=== PATIENT | female | born 1940 | race Asian ===

== ENCOUNTER 2021-05-30 19:10 | Emergency (ER) | payer OTHER ==
[~2021-05-30] VITALS: Ht 152.4 cm; Wt 43.1 kg
[2021-05-30 19:10] VITALS: BP 157/90
--- NOTE | 2021-05-30 19:13 | NUR ---
BIBA TAKEN TO BED #3
--- NOTE | 2021-05-30 19:15 | NUR ---
SEE COMPLETE ASSESSMENT. ALL SAFETY MEASURES IN PLACE. WILL CONTINUE TO MONITOR
[2021-05-30] MEDS ORDERED: LIDOCAINE MPF 1% 10 MG/ML VIAL INJ ONE (19:35)
--- NOTE | 2021-05-30 19:40 | NUR ---
PT AMBUALTED TO RESTROOM UNASSITED. STEADY GAIT OBSERVED.
--- NOTE | 2021-05-30 20:03 | NUR ---
ATTEMPTED TO GIVE TDAP VACCINATION, PT WOULD NOT ALLOW INJECTION. PT WITHDRAW SEVERAL TIMES. WILL HOLD OFF UNTIL PATIENT IS MORE CALM. DR. MAYS MADE AWARE
[2021-05-30 20:10] LABS: BASOPHILS % (AUTO) 0.4 % (0.0-2.0); EOSINOPHILS # (AUTO) 0.1 K/uL (0-0.4); EOSINOPHILS % (AUTO) 1.3 % (0.0-4.0); HEMATOCRIT 40.1 % (36-48); HEMOGLOBIN 13.2 g/dL (12.0-16.0); LYMPHOCYTES # (AUTO) 1.7 K/uL (2.5-16.5); LYMPHOCYTES % (AUTO) 29.2 % (20.5-51.1); MEAN CORPUSCULAR HEMOGLOBIN 31 pg (27-31); MEAN CORPUSCULAR HGB CONC 33 g/dL (33-37); MEAN CORPUSCULAR VOLUME 94.1 fL (80-94); MONOCYTES # (AUTO) 0.5 K/uL (0.8-1.0); MONOCYTES % (AUTO) 7.6 % (1.7-9.3); NEUTROPHILS # (AUTO) 3.7 K/uL (1.8-7.7); NEUTROPHILS % (AUTO) 61.5 % (42.2-75.2); PLATELET COUNT (AUTO) 191 K/uL (140-450); RED BLOOD CELL COUNT(AUTO) 4.27 MIL/uL (4.20-5.40); RED CELL DISTRIBUTION WIDTH 14.5 % (11.6-13.7)
--- NOTE | 2021-05-30 20:15 | NUR ---
LAC IRRIGATED. STERRI STRIPS APPLIED TO LT UPPER CHEEK 1CM LAC.
--- NOTE | 2021-05-30 20:30 | NUR ---
PER JESSIE, SON HE WOULD NOT BE ABLE TO PROVIDE TRANSPORTATION FOR PT TO RETURN TO HER FACILITY.
--- NOTE | 2021-05-30 20:30 | NUR ---
S/W JESSIE, PT SON TO PROVIDE UPDATE ON PATIENT CONDITION. CALL TRANSFERRED TO PT AT THIS TIME. CALL PROVIDED PT WITH COMFORT. PT SEATED IN BED AND CALM.
[2021-05-30 20:31] LABS: ALBUMIN 4.1 g/dL (3.4-5.0); ANION GAP 11.3 (8-16); ASPARTATE AMINOTRANSFERASE 13 U/L (15-37); CARBON DIOXIDE 29.7 mmol/L (21-32); CHLORIDE 108 mmol/L (98-107); CREATININE 0.8 mg/dL (0.6-1.3); GLUCOSE 129 mg/dL (74-106); SODIUM SERUM 145 mmol/L (136-145); TOTAL BILIRUBIN 0.2 mg/dL (0.0-1.0); UREA NITROGEN, BLOOD 19 mg/dL (7-18)
--- NOTE | 2021-05-30 21:20 | NUR ---
CALLED [facility]. PER [facility] THEY DO NOT HAVE A TRANSPORTATION SERVICE TO P/U PT AND TRANSPORTATION WOULD NEED TO BE ARRANGED BY OUR FACILITY.
--- NOTE | 2021-05-30 22:00 | NUR ---
PT NEEDS REORIENTATING FREQUENTLY AND REMINDER TO STAY IN HER ROOM. PT COOPERATIVE AT THIS TIME.
--- NOTE | 2021-05-30 23:15 | NUR ---
PT SEEN LAYING IN BED QUIETLY. VISIBLE CHEST RISE AND FALL NOTED. ALL NEEDS MET AT THIS TIME. WILL CONTINUE TO MONITOR.
--- NOTE | 2021-05-31 00:15 | NUR ---
PT SEEN WALKING THE HALLWAYS. ATTEMPTED TO REDIRECT PT TO ROOM. PT BEGAN YELLING AND SCREAMING, UNWILLING TO RETURN TO ROOM. PT AGAITATED AT THIS TIME. DR. MAJANO MADE AWARE. VERBAL ORDER FOR BENADRYL 50MG PO GIVEN.
[2021-05-31] MEDS ORDERED: diphenhydrAMINE 50 MG CAP PO ONE ×2 (00:20→00:21)
[2021-05-31] MEDS ORDERED: diphenhydrAMINE 50 MG/ML VIAL IM ONE (00:25)
[2021-05-31] MEDS ORDERED: LORazepam 2 MG/ML VIAL IM ONE (00:25)
--- NOTE | 2021-05-31 00:25 | NUR ---
PT DROPPED MEDICATION. NEW ORDERS RECEIVED FOR ATIVAN 1MG IM AND BENADRYL 50MG IM FROM DR. MAJANO, ORDER CARRIED OUT.
[2021-05-31] MEDS ORDERED: diphenhydrAMINE 50 MG/ML VIAL ONE (00:27)
[2021-05-31] MEDS ORDERED: LORazepam 2 MG/ML VIAL ONE (00:27)
--- NOTE | 2021-05-31 01:08 | NUR ---
attempted to gather vitals, pt uncooperative. will reattempt when pt is more calm.
--- NOTE | 2021-05-31 03:07 | NUR ---
PT SEEN LAYING IN BED QUIETLY. VISIBLE CHEST RISE AND FALL NOTED. ALL NEEDS MET AT THIS TIME. WILL CONTINUE TO MONITOR.
--- NOTE | 2021-05-31 04:30 | NUR ---
PT ASSISSTED TO AND FROM RESTROOM.
--- NOTE | 2021-05-31 04:45 | NUR ---
PT PLACED IN BED. PROVIDED WITH WARM BLANKET FOR COMFORT. WILL CONTINUE TO MONITOR.
--- NOTE | 2021-05-31 06:10 | NUR ---
PT SEEN TRYING TO LEAVE ROOM. PT ASSISTED BACK TO ROOM AT THIS TIME. ALL NEEDS MET WILL CONTINUE TO MONITOR.
--- NOTE | 2021-05-31 07:32 | NUR ---
pt sitting in wheelchair by nursing station, unable to reach facility to pick pt up, spoke to son regarding issue states he will attempt to call facility for possible transportation.
--- NOTE | 2021-05-31 08:00 | NUR ---
spoke to son states he will pick pt up in one hour. relief charge nurse made aware
--- NOTE | 2021-05-31 09:10 | NUR ---
spoke to son who states he will be here at 0930 charge poster made aware
[2021-05-31 09:53] VITALS: BP 112/70
--- NOTE | 2021-05-31 09:53 | NUR ---
son here for dc. pts son verbalizes dc instructions. no acute distress noted. stable on dc.
== END 2021-05-31 09:54 | disposition home or self-care (01) ==
LOC: MED 19:10
DX: S01.81XA Laceration without foreign body of other part of head, initial encounter (principal); F03.90 Unspecified dementia, unspecified severity, without behavioral disturbance, psychotic disturbance, mood disturbance, and anxiety; Z98.890 Other specified postprocedural states; W18.30XA Fall on same level, unspecified, initial encounter; Y93.89 Activity, other specified; Y92.89 Other specified places as the place of occurrence of the external cause; Y99.8 Other external cause status
CPT/HCPCS: 12011; 36415; 80053; 84484; 85025; 96372; 99285; J1200; J2060; Q0163; 90715; J2001